=== PATIENT | female | born 1965 | race Caucasian/White ===

== ENCOUNTER 2023-02-14 18:51 | Emergency (ER) | payer OTHER ==
[~2023-02-14] VITALS: Ht 162.6 cm; Wt 84.8 kg
[2023-02-14 19:23] VITALS: BP 161/110; PULSE 91; RESP 20; TEMP 98.1; O2SAT 99
[2023-02-14] MEDS ORDERED: LIDOCAINE 5% 1 EA PATCH TP ONE (20:05)
[2023-02-14] MEDS ORDERED: KETOROLAC 30 MG/ML VIAL IM ONE (20:05)
[2023-02-14] MEDS ORDERED: LID5T TP (21:23)
[2023-02-14] MEDS ORDERED: CYCL-711 PO (21:23)
[2023-02-14] MEDS ORDERED: IBUP-2213 PO (21:23)
== END 2023-02-14 21:29 | disposition home or self-care (01) ==
LOC: MED 18:51
DX: S39.012A Strain of muscle, fascia and tendon of lower back, initial encounter (principal); X58.XXXA Exposure to other specified factors, initial encounter; Y93.89 Activity, other specified; Y92.89 Other specified places as the place of occurrence of the external cause; Y99.8 Other external cause status
CPT/HCPCS: 96372; 99283; J1885